=== PATIENT | female | born 1995 | race Caucasian/White ===

== ENCOUNTER 2019-10-13 09:06 | Inpatient (IN) | payer MEDICAID ==
[~2019-10-13] VITALS: Ht 170.2 cm; Wt 92.7 kg
[2019-10-13] VITALS (27 sets, daily range): BP systolic 113–187; BP diastolic 61–113; PULSE 77–103; TEMP 97.6–98.4
--- NOTE | 2019-10-13 09:10 | NUR ---
Pt here with c/o contractions and bloody show. 39.6 weeks gestation, G1. Pt to [facility], explained. SVE: 5-/-2, bloody show noted. 0923:Dr Milligan called and message left with Donaldo STEIN. Orders recevied to admit and may have an epidural if desired. IV started to left wrist x 1 attempt. Blood drawn, then LR started and is infusing without difficulty. Inital BP 187/113. Assessment complete and consents signed. Pt states having an occasional headache over the last week, does resolve with tylenol. 0959:BP continue to be elevated. Dr Milligan called and notified, orders for CMP and UA. Pt requests epidural. 1010:Ev FLY WINDER at bedside, epidural placed. See anesthesia notes. Maternal pulse tracing, monitors readjusted, FHR 135bpm. After epidural, pt repositioned to left side. BP now 159/82. Pt comfortable and resting. 1036:SVE:SROM, /-1. Will notify physician.
[2019-10-13 09:52] LABS: HEMATOCRIT 37.9 % (37.0-47.0); HEMOGLOBIN 12.9 g/dl (12.5-16.0); MEAN CELL VOLUME 86 fl (80.0-100.0); MEAN CORPUSCULAR HEMOGLOBIN 29 pg (27.0-31.0); MEAN CORPUSCULAR HGB CONC 34 g/dl (33.0-37.0); MEAN PLATELET VOLUME 10.7 fl (7.4-10.4); PLATELET COUNT 201 K/mm3 (130-400); RED BLOOD COUNT 4.42 M/mm3 (4.10-5.30); REDCELL DISTRIBUTION WIDTH-CV 13.2 % (11.5-14.5)
[2019-10-13 10:08] LABS: BAND 6 % (0-10); LYMPHOCYTE 16 % (20.0-51.0); METAMYELOCYTE 2 % (0-0); NEUTROPHILS 71 % (42.0-75.2); PLATELET ESTIMATE NORMAL (NORMAL)
[2019-10-13] MEDS ORDERED: TYLENOL 325MG325 MG PO (10:25)
[2019-10-13] MEDS ORDERED: PRENATAL PO (10:25)
[2019-10-13 11:01] LABS: ALBUMIN 3.9 gm/dL (3.5-5.0); BILIRUBIN,TOTAL 0.3 mg/dL (0.0-1.0); CALCIUM 8.8 mg/dL (8.4-10.2); CREATININE, serum 0.4 (0.52-1.25); POTASSIUM 3.7 mmol/L (3.4-5.0); TOTAL PROTEIN 7.2 gm/dL (6.4-8.2)
--- NOTE | 2019-10-13 11:20 | NUR ---
[place] catheter placed. SVE:AL/100/0. 1200:Ultrasound cable replaced d/t intermittent tracing. 1220:Pt feeling pressure, SVE: Anterior Lip.
--- NOTE | 2019-10-13 13:05 | NUR ---
Dr Milligan here and at bedside. SVE: complete +2. Instructions on pushing given. Pericare done and pt repositioned. Family at bedside. 1315:Pt begins to push. Pushes through 3 contractions and prolonged decelerations noted. FHR decreasing to 70-80bpm for 3 minutes. 1320:Dr Milligan here and notified. Pt prepped for delivery and continues to push with contractions. Recurrent variable decels noted. 1335: of infants head and shoulders. Infant skin to skin and in care of Doni GIBBS. 1340:Spontaneous delivery of placenta. 500cc LR with 30mu pitocin infusing at 333ml/hr per protocol. Fundus firm, bleeding WNL. Pericare done and pt sitting up holding infant.
[2019-10-13 14:25] LABS: COLLECTION METHOD CLEAN CATCH
[2019-10-13 14:41] LABS: MUCOUS Present /lpf; PH 6 (5-8); SQUAMOUS EPITHELIAL 0-2 /hpf; URINE APPEARANCE Hazy; URINE BACTERIA None Seen /hpf; URINE BILIRUBIN Negative (NEGATIVE); URINE BLOOD 2+ (NEGATIVE); URINE COLOR Yellow; URINE GLUCOSE Negative (NEGATIVE); URINE KETONE 1+ (NEGATIVE); URINE LEUKOCYTE ESTERASE Negative (NEGATIVE); URINE NITRATE Negative (NEGATIVE); URINE PROTEIN(semi-quant) 1+ (NEGATIVE); URINE RBC >50 /hpf; URINE UROBILINOGEN Negative (NEGATIVE); URINE WBC 0-2 /hpf
--- NOTE | 2019-10-13 16:30 | NUR ---
Pt's right leg still numb. Pt up to bathroom with assist via wheelchair. voids 400cc. Fundus firm. Bleeding WNL. New pads and ice pack on. Pericare done and instructions given. Pt to room 214 via wheelchair.
[2019-10-14 01:30] VITALS: BP 128/80; PULSE 84; TEMP 98.4
[2019-10-14] MEDS ORDERED: IBU800 M1 PO (07:48)
[2019-10-14 09:30] VITALS: BP 132/78; PULSE 93; TEMP 98.1
[2019-10-14 16:20] VITALS: BP 130/76; PULSE 83; TEMP 97.9
[2019-10-14 21:00] VITALS: BP 140/88; PULSE 95; TEMP 98.2
[2019-10-15 10:00] VITALS: BP 135/79; PULSE 90; TEMP 98.2
== END 2019-10-15 14:50 | disposition home or self-care (01) | DRG 768 ==
LOC: LDRO 09:06 → OB 09:10 → LDR 09:10 → OB 15:20
PROVIDERS: ADMIT Student in an Organized Health Care Education/Training Program
PROC: 10E0XZZ Delivery of Products of Conception, External Approach (ICD-10-PCS; principal; 2019-10-13)
PROC: 0TQDXZZ Repair Urethra, External Approach (ICD-10-PCS; 2019-10-13)
PROC: 0UQGXZZ Repair Vagina, External Approach (ICD-10-PCS; 2019-10-13)
DX: O77.0 Labor and delivery complicated by meconium in amniotic fluid (principal); Z37.0 Single live birth; O71.4 Obstetric high vaginal laceration alone; O71.5 Other obstetric injury to pelvic organs; Z3A.39 39 weeks gestation of pregnancy
CPT/HCPCS: J2590; J2795; J7120

== ENCOUNTER 2024-08-22 10:20 | Outpatient (CLI) | payer BC ==
[~2024-08-22] VITALS: Ht 167.6 cm; Wt 95.5 kg
[~2024-08-22 10:20] MED LIST: IBU800 M1 PO; PRENATAL PO; TYLENOL 325MG325 MG PO
[2024-08-22] MEDS ORDERED: PLAQUENIL 200M200 MG PO (10:40)
[2024-08-22 10:45] VITALS: BP 132/76; PULSE 84; TEMP 97.9
[2024-08-22] MEDS ORDERED: LR 1,000 ML IV PRN (10:45)
--- NOTE | 2024-08-22 10:45 | NUR ---
PT AMBULATORY TO UNIT COMPLAINING OF 6 PAINFUL CONTRACTIONS SINCE 0600 TODAY. STATES "NOTHING IS HAPPENING REGULARLY, BUT WHEN THEY DO HAPPEN, THEY DO KIND OF HURT." PT DENIES LOF/VB. REPORTS POSITIVE MOVEMENT. SVE UPON ARRIVAL FINGERTIP/60/-2. NO FLUID NOTED ON GLOVE WITH CERVICAL EXAM. CATEGORY 1 EFM TRACING, IRRREGULAR CONTRACTIONS MILD WITH PALPATION, PT ABLE TO TALK AND BREATHE THROUGH THEM. LARGE JUG OF ICE WATER PROVIDED, PT DRINKING WATER AT THIS TIME. AFEBRILE, MATERNAL VITAL SIGNS STABLE. WILL CONTINUE WITH LABOR CHECK PROCESS PER PROTOCOL.
[2024-08-22 11:15] VITALS: BP 119/77; PULSE 77
[2024-08-22 11:35] VITALS: BP 120/78; PULSE 82
--- NOTE | 2024-08-22 11:50 | NUR ---
ALL DC PAPERWORK REVIEWED AND UNDERSTOOD INCLUDING EARLY LABOR PRECAUTIONS. PT DENIES FURTHER QUESTIONS OR CONCERNS. AMBULATORY FROM UNIT IN STABLE CONDITION AT THIS TIME.
== END 2024-08-22 11:50 | disposition home or self-care (01) ==
LOC: LDRO 10:20 → LDR 10:35 → LDRO 11:50
DX: O62.9 Abnormality of forces of labor, unspecified (principal); Z3A.35 35 weeks gestation of pregnancy
CPT/HCPCS: OP